=== PATIENT | female | born 1935 | race Caucasian/White ===

== ENCOUNTER 2016-10-02 14:44 | Inpatient (IN) | payer MEDICARE, BC ==
--- NOTE | 2016-10-02 15:22 | XR ---
EXAMINATION TYPE: XR chest 2V DATE OF EXAM: 10/02/2016 3:16 PM COMPARISON: Chest x-ray July 30, 2016. Prior CTA chest July 25, 2016. HISTORY: Altered mental status and weakness TECHNIQUE: Frontal and lateral views of the chest are obtained. FINDINGS: There is chronic parenchymal change without suspicious focal air space opacity, pleural ef fusion, or pneumothorax seen. The cardiac silhouette size remains enlarged with atherosclerotic thor acic aorta. Prominent right heart border suggests right atrial dilatation. This correlates with CTA c hest study. The osseous structures are demineralized. Degenerative change right glenohumeral joint i s redemonstrated. IMPRESSION: Cardiomegaly and chronic parenchymal changes without acute pulmonary process. No signifi cant change from prior.
--- NOTE | 2016-10-02 15:23 | CT ---
EXAMINATION TYPE: CT brain wo con for TPA DATE OF EXAM: 10/02/2016 3:15 PM COMPARISON: NONE HISTORY: weakness CT DLP: 1162.8 mGycm Automated exposure control for dose reduction was used. FINDINGS: There are generalized changes of sulcal prominence and ventriculomegaly, compatible with atrophic jh nge. There is diffuse periventricular white matter lucency, compatible with chronic white matter ischemic change. There is no acute focal lesion, mass effect or midline shift identified. I do not see evidenc e of intracranial blood. Visualized portions of the paranasal sinuses and mastoids are clear. No depressed skull fracture is s een. IMPRESSION: 1. NO ACUTE INTRACRANIAL ABNORMALITY. 2. ATROPHIC CHANGE. 3. CHRONIC WHITE MATTER ISCHEMIC CHANGE.
[2016-10-02 16:12] LABS: Anisocytosis Slight; Basophils # (A) 0.1 k/uL (0-0.2); Basophils % (A) 1 %; CH 29.2; Eosinophils # (A) 0.1 k/uL (0-0.7); Eosinophils % (A) 1 %; HCT 33.9 % (34.0-46.0); HDW 2.85; HGB 11.2 gm/dL (11.4-16.0); Luc # (Auto) 0.09; Luc % (Auto) 1; Lymphocytes # (A) 2.6 k/uL (1.0-4.8); Lymphocytes % (A) 31 %; MCH 29.4 pg (25.0-35.0); MCV 89.1 fL (80.0-100.0); Mean Platelet Volume 7.9; Monocytes # (A) 0.5 k/uL (0-1.0); Monocytes % (A) 6 %; Neutrophils # (A) 5.1 k/uL (1.3-7.7); Neutrophils % (A) 60 %; RBC 3.81 m/uL (3.80-5.40); RDW 16.7 % (11.5-15.5); WBC 8.5 k/uL (3.8-10.6); WBC (Perox) 9.11
[2016-10-02 16:21] LABS: ALT 27 U/L (9-52); AST 30 U/L (14-36); Alkaline Phosphatase 79 U/L (38-126); Anion Gap 11 mmol/L; Blood Urea Nitrogen 20 mg/dL (7-17); Calcium 8.7 mg/dL (8.4-10.2); Carbon Dioxide 22 mmol/L (22-30); Chloride 107 mmol/L (98-107); Glucose 81 mg/dL (74-99); INR 1.2 (<1.1); Non-African American GFR(MDRD) >60 (>60 ml/min/1.73 sqM); Partial Thromboplastin Time 24.2 sec (22.0-30.0); Prothrombin Time 11.7 sec (9.0-12.0); Sodium 140 mmol/L (137-145); Total Bilirubin 0.7 mg/dL (0.2-1.3); Total Protein 6.6 g/dL (6.3-8.2)
[2016-10-02 16:25] LABS: Potassium 4.1 mmol/L (3.5-5.1)
--- NOTE | 2016-10-02 16:32 | ED ---
Neuro HPI - General Chief Complaint: Neuro Symptoms/Deficit Stated Complaint: Neuro Symptoms Time Seen by Provider: 10/02/16 14:44 Source: patient, family, EMS, RN notes reviewed Mode of arrival: EMS Limitations: no limitations - History of Present Illness Is the patient presenting with stroke symptoms?: Yes Last Known Well Date: 10/01/16 Last Known Well Time: 12:30 Initial Comments: This is a 81-year-old female was brought in by EMS for evaluation stroke like symptoms apparently she did contact family members around 10:30 this morning that some right upon contact EMS was called patient was brought here for evaluation she did demonstrate some right facial droop and some aphasia. Per the paramedics she has seemed to perk up however and improve since oxygen and IV fluids were administered. Is unclear exactly when the patient's symptoms started as she was last seen earlier yesterday evening and was normal at that time. Patient denies any headache fevers chills nausea vomiting sweats no trauma. No prior history of stroke she is hard of hearing. - Related Data Home Medications: Home Medications Medication Instructions Recorded Confirmed Budesonide [Pulmicort] 0.5 mg INHALATION RT-BID 07/23/16 10/02/16 Famotidine [Pepcid] 20 mg PO DAILY 07/23/16 10/02/16 Gabapentin [Neurontin] 300 mg PO TID 07/23/16 10/02/16 Levothyroxine Sodium [Synthroid] 112 mcg PO DAILY 07/23/16 10/02/16 Lisinopril [Zestril] 5 mg PO DAILY 07/23/16 10/02/16 Montelukast [Singulair] 10 mg PO HS 07/23/16 10/02/16 Sennosides [Senna] 8.6 mg PO HS 07/23/16 10/02/16 ALPRAZolam [Xanax] 0.25 mg PO BID PRN 10/02/16 10/02/16 Ferrous Sulfate [Feosol] 325 mg PO DAILY 10/02/16 10/02/16 Lutein 10 mg PO DAILY 10/02/16 10/02/16 Metoprolol Tartrate [Lopressor] 50 mg PO BID 10/02/16 10/02/16 Previous Rx's Medication Instructions Recorded Aspirin 81 mg PO DAILY chew 07/28/16 Allergies/Adverse Reactions: Allergies Allergy/AdvReac Type Severity Reaction Status Date / Time No Known Allergies Allergy Verified 10/02/16 16:10 Review of Systems ROS Statement: Those systems with pertinent positive or pertinent negative responses have been documented in the HPI. ROS Other: All systems not noted in ROS Statement are negative. General Exam - General Exam Comments Initial Comments: This is a well-developed well-nourished awake alert oriented history female Limitations: no limitations General appearance: alert Head exam: Present: atraumatic, normocephalic, normal inspection Eye exam: Present: normal appearance, PERRL, EOMI. Absent: scleral icterus, conjunctival injection, periorbital swelling ENT exam: Present: other (He does demonstrate right facial asymmetry) Neck exam: Present: normal inspection, full ROM, other (No stridor JVD or bruits ). Absent: tenderness, meningismus, lymphadenopathy Respiratory exam: Present: normal lung sounds bilaterally. Absent: respiratory distress, wheezes, rales, rhonchi, stridor Cardiovascular Exam: Present: normal rhythm, bradycardia, normal heart sounds. Absent: systolic murmur, diastolic murmur, rubs, gallop, clicks GI/Abdominal exam: Present: soft, normal bowel sounds. Absent: distended, tenderness, guarding, rebound, rigid Rectal exam: Present: deferred Extremities exam: Present: normal inspection, full ROM, normal capillary refill. Absent: tenderness, pedal edema, joint swelling, calf tenderness Back exam: Present: normal inspection Neurological exam: Present: alert, oriented X3, motor sensory deficit. Absent: CN II-XII intact Psychiatric exam: Present: flat affect Skin exam: Present: warm, dry, intact, normal color. Absent: rash Stroke MDM - Lab Data Result diagrams: 10/02/16 15:40 10/02/16 15:40 Lab Results 10/02/16 10/02/16 10/02/16 Range/Units 15:40 15:40 15:40 WBC 8.5 (3.8-10.6) k/uL RBC 3.81 (3.80-5.40) m/uL Hgb 11.2 L (11.4-16.0) gm/dL Hct 33.9 L (34.0-46.0) % MCV 89.1 (80.0-100.0) fL MCH 29.4 (25.0-35.0) pg MCHC 33.0 (31.0-37.0) g/dL RDW 16.7 H (11.5-15.5) % Plt Count 318 (150-450) k/uL Neutrophils % 60 % Lymphocytes % 31 % Monocytes % 6 % Eosinophils % 1 % Basophils % 1 % Neutrophils # 5.1 (1.3-7.7) k/uL Lymphocytes # 2.6 (1.0-4.8) k/uL Monocytes # 0.5 (0-1.0) k/uL Eosinophils # 0.1 (0-0.7) k/uL Basophils # 0.1 (0-0.2) k/uL Anisocytosis Slight PT (9.0-12.0) sec INR (<1.1) APTT (22.0-30.0) sec Sodium 140 (137-145) mmol/L Potassium 4.1 (3.5-5.1) mmol/L Chloride 107 (98-107) mmol/L Carbon Dioxide 22 (22-30) mmol/L Anion Gap 11 mmol/L BUN 20 H (7-17) mg/dL Creatinine 0.82 (0.52-1.04) mg/dL Est GFR (MDRD) Af Amer >60 (>60 ml/min/1.73 sqM) Est GFR (MDRD) Non-Af >60 (>60 ml/min/1.73 sqM) Glucose 81 (74-99) mg/dL Calcium 8.7 (8.4-10.2) mg/dL Total Bilirubin 0.7 (0.2-1.3) mg/dL AST 30 (14-36) U/L ALT 27 (9-52) U/L Alkaline Phosphatase 79 (38-126) U/L Total Creatine Kinase 34 (30-135) U/L CK-MB (CK-2) 0.7 (0.0-2.4) ng/mL CK-MB (CK-2) Rel Index 2.1 Troponin I 0.022 (0.000-0.034) ng/mL Total Protein 6.6 (6.3-8.2) g/dL Albumin 3.6 (3.5-5.0) g/dL 10/02/16 Range/Units 15:40 WBC (3.8-10.6) k/uL RBC (3.80-5.40) m/uL Hgb (11.4-16.0) gm/dL Hct (34.0-46.0) % MCV (80.0-100.0) fL MCH (25.0-35.0) pg MCHC (31.0-37.0) g/dL RDW (11.5-15.5) % Plt Count (150-450) k/uL Neutrophils % % Lymphocytes % % Monocytes % % Eosinophils % % Basophils % % Neutrophils # (1.3-7.7) k/uL Lymphocytes # (1.0-4.8) k/uL Monocytes # (0-1.0) k/uL Eosinophils # (0-0.7) k/uL Basophils # (0-0.2) k/uL Anisocytosis PT 11.7 (9.0-12.0) sec INR 1.2 (<1.1) APTT 24.2 (22.0-30.0) sec Sodium (137-145) mmol/L Potassium (3.5-5.1) mmol/L Chloride (98-107) mmol/L Carbon Dioxide (22-30) mmol/L Anion Gap mmol/L BUN (7-17) mg/dL Creatinine (0.52-1.04) mg/dL Est GFR (MDRD) Af Amer (>60 ml/min/1.73 sqM) Est GFR (MDRD) Non-Af (>60 ml/min/1.73 sqM) Glucose (74-99) mg/dL Calcium (8.4-10.2) mg/dL Total Bilirubin (0.2-1.3) mg/dL AST (14-36) U/L ALT (9-52) U/L Alkaline Phosphatase (38-126) U/L Total Creatine Kinase (30-135) U/L CK-MB (CK-2) (0.0-2.4) ng/mL CK-MB (CK-2) Rel Index Troponin I (0.000-0.034) ng/mL Total Protein (6.3-8.2) g/dL Albumin (3.5-5.0) g/dL - NIH Stroke Scale 1a. Level of Consciousness: (0) alert 1b. LOC Questions: (1) answers 1 question correctly 1c. LOC Commands: (0) performs tasks correctly 2. Best Gaze: (0) normal 3. Visual: (0) no visual loss 4. Facial Palsy: (1) minor paralysis 5a. Motor Arm Left: (0) no drift 5b. Motor Arm Right: (0) no drift 6a. Motor Leg Left: (0) no drift 6b. Motor Leg Right: (0) no drift 7. Limb Ataxia: (0) absent 8. Sensory: (0) normal 9. Best Language: (1) mild/moderate aphasia 10. Dysarthria: (1) mild/moderate dysarthria 11. Extinction/Inattention: (0) no abnormality - Thrombolytic Inclusion/Exclusion Thrombolytic Exclusion Criteria: Onset of Symptoms Unknown Thrombolytic Contraindications: Rapidly Improving s/s - Medical Decision Making I did review the imaging and reports no acute findings. The patient's symptoms are improving and she asked improved at time I initially contacted the patient' s fill her first official NIH score was filled out. She also did improve slightly after return from CAT scan. I did reevaluate her on several occasions I did discuss findings the patient's family. Patient will be admitted with neurological consultation she is not a candidate for intervention at this time due to the unknown timing of the event also she is improving. - EKG Data -: EKG Interpreted by Me EKG shows normal: sinus rhythm (Sinus bradycardia rate of 50. Interval 146 QRS duration 80 QT/QTC of 490/[address]-T wave changes.) Past Medical History Past Medical History: Atrial Fibrillation, COPD, GERD/Reflux, Hyperlipidemia, Hypertension, Thyroid Disorder, Vascular Disorder Additional Past Medical History / Comment(s): 07/23/16 Pt is a transfer from [facility] with NSTEMI. Other HX: chronic AFib, sick sinus syndrome, mitral/aortic regurgitation, bilateral feet burning, PVD, uterine prolapse, iron deficiency anemia, DDD, lumbar compression fracture, osteoporosis, diverticulosis, vertigo , hialtal hernia, past fracture of L arm and R leg and R wrist. History of Any Multi-Drug Resistant Organisms: None Reported Past Surgical History: Cholecystectomy, Joint Replacement Additional Past Surgical History / Comment(s): colonoscopy, bilateral cataract removal then R eyelens did not take hold-(for this reason, R eye looks dilated) , total R hip arthroplasty, tube and ovary removal. Past Anesthesia/Blood Transfusion Reactions: No Reported Reaction Additional Past Anesthesia/Blood Transfusion Reaction / Comment(s): Pt states she believes she received blood in the past without reaction. Past Psychological History: Anxiety Additional Psychological History / Comment(s): Pt resides alone. She has a cane she uses if going outside the home. She no longer drives-quit in 2013. Her family take her to [employer]. She has a guardian alert button. Smoking Status: Former smoker Past Alcohol Use History: None Reported Past Drug Use History: None Reported - Past Family History Father Family Medical History: Cancer Additional Family Medical History / Comment(s): Father had cancer in his shoulder. Mother Family Medical History: CVA/TIA, Diabetes Mellitus Course Vital Signs 10/02/16 15:23 Temperature 97.6 F Pulse Rate 52 L Respiratory 18 Rate Blood Pressure 146/63 O2 Sat by Pulse 99 Oximetry Critical Care Time Critical Care Time: Yes Critical Care Time: 36 minutes of critical care time which includes monitoring the initial EMS run and discussed with paramedics. Evaluation the patient with history physical lab and x-rays and CAT scan orders. Evaluation of the above reevaluation patient several occasions. Discussion with the patient family members regarding the findings discussed with the admitting physician. Admission orders and documentation of the above. Disposition Clinical Impression: Cerebrovascular accident Disposition: ADMITTED IP TO THIS HOSP Condition: Stable
[2016-10-02 16:35] LABS: Creatine Kinase MB 0.7 ng/mL (0.0-2.4); Troponin I 0.022 ng/mL (0.000-0.034)
--- NOTE | 2016-10-02 17:42 | US ---
EXAMINATION TYPE: US carotid duplex BILAT DATE OF EXAM: 10/02/2016 5:27 PM COMPARISON: NONE CLINICAL HISTORY: Stenosis. Confusion EXAM MEASUREMENTS: RIGHT: Peak Systolic Velocity (PSV) cm/sec ----- Right CCA: 70.3 ----- Right ICA: 100.0 ----- Right ECA: 102.1 ICA/CCA ratio: 1.4 RIGHT: End Diastole cm/sec ----- Right CCA: 12.9 ----- Right ICA: 28.9 ----- Right ECA: 7.6 LEFT: Peak Systolic Velocity (PSV) cm/sec ----- Left CCA: 55.9 ----- Left ICA: 73.5 ----- Left ECA: 108.1 ICA/CCA ratio: 1.3 LEFT: End Diastole cm/sec ----- Left CCA: 12.0 ----- Left ICA: 17.5 ----- Left ECA: 9.5 VERTEBRALS (direction of flow): Right Vertebral: Antegrade Left Vertebral: Antegrade TECHNOLOGIST IMPRESSION: Moderate amount of plaque visualized in bilateral bulbs and proximal ICAs. No elevated velocities visualized IMPRESSION: There is antegrade flow in the vertebral arteries. The images and measurements suggest 3 0-40% stenosis in both internal carotid arteries. Criteria for Assigning % of Stenosis / Diameter reduction (Estimation based on the indirect measurements of the internal carotid artery velocities (ICA PSV). 1. Normal (no stenosis)=ICA PSV < 125 cm/s: ratio < 2.0: ICA EDV<40 cm/s. 2. Less than 50% stenosis=ICA PSV < 125 cm/s: ratio < 2.0: ICA EDV<40 cm/s. 3. 50 to 69% stenosis=ICA PSV of 125 to 230 cm/s: ration 2.0 ? 4.0: ICA EDV 40-100 cm/s. 4. Greater than 70% stenosis to near occlusion= ICA PSV > 230 cm/s: ratio > 4.0: ICA EDV > 100 cm/s. 5. Near occlusion= ICA PSV velocities may be low or undetectable: variable ratio and ICA EDV. 6. Total occlusion=unable to detect flow.
[2016-10-02 19:21] VITALS: BMI 23.6
[2016-10-02] MEDS: BUDESONIDE 0.5 MG/2 ML NEBU INHALATION SCH (20:42)
[2016-10-02] MEDS: MONTELUKAST 10 MG TAB PO SCH (22:19)
[2016-10-02] MEDS: GABAPENTIN 300 MG CAP PO SCH (22:19)
[2016-10-02] MEDS: METOPROLOL TARTRATE 50 MG TAB PO SCH (22:19)
[2016-10-03] MEDS: SODIUM CHLORIDE 0.9% 1,000 ML IV SCH ×2 (05:45→06:49)
[2016-10-03] MEDS: LEVOTHYROXINE 112 MCG TAB PO SCH (06:50)
[2016-10-03] MEDS ORDERED: NON-FORMULARY DRUG (Lutein [Lutein] 10 MG) PO SCH (09:00)
[2016-10-03] MEDS: GABAPENTIN 300 MG CAP PO SCH ×3 (09:01→21:54)
[2016-10-03] MEDS: METOPROLOL TARTRATE 50 MG TAB PO SCH ×2 (09:01→21:53)
[2016-10-03] MEDS: FAMOTIDINE 20 MG TAB PO SCH (09:02)
[2016-10-03] MEDS: LISINOPRIL 5 MG TAB PO SCH (09:02)
[2016-10-03] MEDS: FERROUS SULFATE 325 MG TAB PO SCH (09:02)
[2016-10-03] MEDS: BUDESONIDE 0.5 MG/2 ML NEBU INHALATION SCH ×2 (09:22→21:04)
[2016-10-03] MEDS ORDERED: ALPRAZolam 0.25 MG TAB PO PRN (09:44)
[2016-10-03] MEDS ORDERED: NITROGLYCERIN SL TABS 0.4 MG TAB SUBLINGUAL PRN (09:44)
[2016-10-03] MEDS ORDERED: ACETAMINOPHEN TAB 500 MG TAB PO PRN (09:44)
[2016-10-03] MEDS: amLODIPine 2.5 MG TAB PO SCH (11:36)
--- NOTE | 2016-10-03 12:30 | P.HPIM ---
History of Present Illness H&P Date: 10/03/16 Chief Complaint: Right facial droop and aphasia 81-year-old female patient of Dr. Delarosa with past medical history of hypertension, hyperlipidemia, paroxysmal atrial fibrillation is known to have sick sinus syndrome aortic dissection under conservative management, non- ST myocardial infarction in July 2016 status post PCI and stent of RCA, chronic back pain. Patient hasn't drooping of the face and expressive aphasia. Patient came into [facility] emergency center by EMS for evaluation of right facial droop and aphasia. Patient apparently had some improvement with EMS with oxygen and IV fluids. Carotid duplex shows 40% stenosis in both internal carotid arteries. Chest x-ray shows cardio mainly with chronic parenchymal changes without acute pulmonary process. CAT scan of the brain showed no acute intracranial abnormality. Atrophic changes with chronic white matter ischemic change. Troponin was 0.022. Electrolytes, renal and liver function testing all within normal limits. Patient was started on full strength aspirin and admitted to the selective care unit with consult with Dr. Adams from neurology, MRI of the brain has been ordered. PT OT and speech therapy ordered. Review of Systems All systems: negative Constitutional: Denies chills, Denies fever Eyes: denies blurred vision, denies pain Ears, nose, mouth and throat: Denies headache, Denies sore throat Cardiovascular: Denies chest pain, Denies shortness of breath Respiratory: Denies cough Gastrointestinal: Denies abdominal pain, Denies diarrhea, Denies nausea, Denies vomiting Genitourinary: Denies dysuria, Denies hematuria Musculoskeletal: Denies myalgias Integumentary: Denies pruritus, Denies rash Neurological: Reports aphasia, Reports change in speech, Denies balance difficulties, Denies change in mentation, Denies gait dysfunction, Denies head injury, Denies loss of vision, Denies memory loss, Denies numbness, Denies weakness, Denies visual changes Psychiatric: Denies anxiety, Denies depression Endocrine: Denies fatigue, Denies weight change Past Medical History Past Medical History: Atrial Fibrillation, Asthma, COPD, Eye Disorder, GERD/ Reflux, Hyperlipidemia, Hypertension, Osteoarthritis (OA), Pneumonia, Thyroid Disorder, Vascular Disorder Additional Past Medical History / Comment(s): 07/23/16 Pt is a transfer from [facility] with NSTEMI. Other HX: chronic AFib, sick sinus syndrome, mitral/aortic regurgitation, bilateral feet burning, PVD, uterine prolapse, iron deficiency anemia, DDD, lumbar compression fracture, osteoporosis, diverticulosis, vertigo , hialtal hernia, past fracture of L arm and R leg and R wrist. History of Any Multi-Drug Resistant Organisms: None Reported Past Surgical History: Cholecystectomy, Heart Catheterization With Stent, Joint Replacement Additional Past Surgical History / Comment(s): colonoscopy, bilateral cataract removal then R eyelens did not take hold-(for this reason, R eye looks dilated) , total R hip arthroplasty, tube and ovary removal, stent to distal RCA on 07/23. Past Anesthesia/Blood Transfusion Reactions: No Reported Reaction Additional Past Anesthesia/Blood Transfusion Reaction / Comment(s): Pt states she believes she received blood in the past without reaction. Date of Last Stent Placement:: 07/23/16 Past Psychological History: Anxiety Additional Psychological History / Comment(s): Pt resides alone. She has a cane she uses if going outside the home. She no longer drives-quit in 2013. Her family take her to [employer]. She has a guardian alert button. Smoking Status: Former smoker Past Alcohol Use History: None Reported Additional Past Alcohol Use History / Comment(s): Patient quit smoking 1 year ago. Past Drug Use History: None Reported - Past Family History Father Family Medical History: Cancer Additional Family Medical History / Comment(s): Father had cancer in his shoulder. Mother Family Medical History: CVA/TIA, Diabetes Mellitus Medications and Allergies Home Medications Medication Instructions Recorded Confirmed Type Budesonide [Pulmicort] 0.5 mg INHALATION RT-BID 07/23/16 10/02/16 History Famotidine [Pepcid] 20 mg PO DAILY 07/23/16 10/02/16 History Gabapentin [Neurontin] 300 mg PO TID 07/23/16 10/02/16 History Levothyroxine Sodium [Synthroid] 112 mcg PO DAILY 07/23/16 10/02/16 History Lisinopril [Zestril] 5 mg PO DAILY 07/23/16 10/02/16 History Montelukast [Singulair] 10 mg PO HS 07/23/16 10/02/16 History Sennosides [Senna] 8.6 mg PO HS 07/23/16 10/02/16 History ALPRAZolam [Xanax] 0.25 mg PO BID PRN 10/02/16 10/02/16 History Acetaminophen [Tylenol] 500 mg PO Q4-6H PRN 10/02/16 10/02/16 History Atorvastatin [Lipitor] 80 mg PO HS 10/02/16 10/02/16 History Clopidogrel [Plavix] 75 mg PO DAILY 10/02/16 10/02/16 History Ferrous Sulfate [Feosol] 325 mg PO DAILY 10/02/16 10/02/16 History Ipratropium-Albuterol Nebulize 3 ml INHALATION QID PRN 10/02/16 10/02/16 History [Duoneb 0.5 mg-3 mg/3 ml Soln] Lutein 20 mg PO DAILY 10/02/16 10/02/16 History Metoprolol Tartrate [Lopressor] 25 mg PO QAM 10/02/16 10/02/16 History Metoprolol Tartrate [Lopressor] 50 mg PO HS 10/02/16 10/02/16 History Nitroglycerin Sl Tabs [Nitrostat] 0.4 mg PO Q5M PRN 10/02/16 10/02/16 History amLODIPine [Norvasc] 2.5 mg PO DAILY 10/02/16 10/02/16 History Allergies Allergy/AdvReac Type Severity Reaction Status Date / Time No Known Allergies Allergy Verified 10/02/16 16:10 Physical Exam Vitals: Vital Signs Temp Pulse Pulse Resp BP BP Pulse Ox 10/03/16 09:24 54 L 98 10/03/16 04:00 97.3 F L 57 L 18 105/57 97 10/03/16 00:00 97.9 F 54 L 18 110/57 99 10/02/16 20:00 63 18 155/66 99 10/02/16 18:11 97.5 F L 51 L 18 131/63 97 10/02/16 17:15 53 L 18 117/15 97 Intake and Output 10/02/16 10/03/16 10/03/16 22:59 06:59 14:59 Intake Total 100 Balance 100 Intake: IV 100 Sodium Chloride 0.9% 1, 100 000 ml @ 100 mls/hr IV . Q10H MARIO ALBERTO Rx#:[id number] Other: Voiding Method Toilet Toilet # Voids 1 2 Weight 66.454 kg 64.2 kg General appearance: no average body habitus, cooperative, no disheveled, no mild distress, no morbidly obese, no acute distress, no obese, no severe distress, no thin - EENT Eyes: no abnormal pupil, no anicteric sclerae, no disc margins sharp, no edentulous, no EOMI, no PERRLA, no fundus normal, no photophobia, no dentition normal, no poor dentition, no ptosis, no scleral icterus, normal apperance ENT: no hard of hearing, no hearing grossly normal, no NA/AT, normal oropharynx , no other, no pharyngeal erythema, no thrush, no tonsillar exudates, no tonsillar swelling Ears: bilateral: normal - Neck Neck: no lymphadenopathy, normal ROM, no other, no rigidity, no stridor, no thyromegaly Carotids: bilateral: upstroke normal Thyroid: bilateral: normal size - Respiratory Respiratory: bilateral: CTA, diminished - Cardiovascular Rhythm: irregularly irregular Heart sounds: normal: S1, S2 Abnormal Heart Sounds: systolic murmur, S3 Gallop - Gastrointestinal General gastrointestinal: no absent bowel sounds, decreased bowel sounds, no distended, no hepatomegaly, no hyperactive bowel sounds, no normal bowel sounds , no organomegaly, no rigid, no scaphoid, soft, no splenomegaly, no tenderness, no umbilical hernia, no ventral hernia - Integumentary Integumentary: no calor, no cellulitis, no cyanotic, no decreased turgor, no flushed, no jaundiced, normal, no normal turgor, pale, rash, no ulcer - Neurologic Neurologic: CNII-XII intact, possibly slight difficulty with word finding - Musculoskeletal Musculoskeletal: gait normal, generalized weakness, strength equal bilaterally, no right sided weakness, no left sided weakness - Psychiatric Psychiatric: A&O x's 3, appropriate affect, no intact judgment & insight Results CBC & Chem 7: 10/02/16 15:40 10/02/16 15:40 Thrombosis Risk Factor Assmnt - DVT/VTE Prophylaxis DVT/VTE Prophylaxis: Pharmacologic Prophylaxis ordered - Choose All That Apply Each Factor Represents 1 point: Medical pt on bed rest Other Risk Factors: Yes Each Risk Factor Represents 3 Points: Age 75 years or older Thrombosis Risk Factor Assessment Total Risk Factor Score: 4 Thrombosis Risk Factor Assessment Level: Moderate Risk Assessment and Plan Plan: 1. Facial drooping and aphasia rule out CVA or TIA. Consult with neurology. MRI ordered. Continue aspirin 325 mg daily. PT OT and speech therapy in progress. 2. Recent non-ST elevated myocardial infarction July 2016 status post PCI and stent placement of the right coronary artery and dissection of the ascending aorta during angioplasty, stable. Continue aspirin, Lipitor, Plavix, metoprolol 50 mg twice daily. 3. Paroxysmal A. fib: Continue metoprolol. Coumadin was stopped on last hospitalization. 4. hypothyroidism: Continue levothyroxine. 5. COPD: Continue DuoNeb along with Pulmicort continue O2 as needed 7 hyperlipidemia: Continue Lipitor. 8 anemia of chronic disease: Has been on iron supplement. 9 valvular heart disease: Patient still on medical management currently. 10 chronic back pain with compression vertebrae, stable. 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 12 hypertension: Continue Lopressor 50 mg twice daily, amlodipine 2.5 mg daily and lisinopril 5 mg daily. 13 GI prophylaxis: Patient will be on pantoprazole 14 DVT prophylaxis . CODE STATUS: DO NOT RESUSCITATE by patient wishes. Expectation from's admission: Patient in the hospital for more than 2 nights. Discharge plan: To be determined. PT, OT, speech therapy in place. Impression and plan of care have been directed as dictated by the signing physician. Keiko Lazcano nurse practitioner acting as scribe for signing physician. Cc: Dr. Nathaly Mack Time with Patient: Greater than 30
[2016-10-03] MEDS: CLOPIDOGREL 75 MG TAB PO SCH (14:23)
--- NOTE | 2016-10-03 15:07 | MR ---
EXAMINATION TYPE: MR brain wo con DATE OF EXAM: 10/03/2016 2:48 PM COMPARISON: CT brain from yesterday. HISTORY: Weakness and neurodeficits on admission yesterday. Agitation today. TECHNIQUE: Multiplanar, multisequence imaging of the brain and brainstem is performed without IV cont rast. FINDINGS: Diffusion weighted images demonstrate cortical and subcortical areas of increased signal on diffusion weighted images with diminished signal on ADC mapping involving the left superior temporal lobe late ral and posterior aspect with increased T2 signal consistent with evolving acute/subacute infarct. So me inferior parietal lobe extension is felt present. There is no worrisome extra-axial fluid collection. There is ventricular and sulcal prominence consis tent with diffuse cerebral atrophy. There are focal and confluent areas of T2 hyperintensity seen thr oughout the deep and periventricular white matter presumed to reflect product of chronic small vessel ischemic change. Midline structures demonstrate normal morphology. The craniocervical junction appears within normal limits. Normal vascular flow voids are present. Dominant left vertebral artery is present. The visual ized sinuses are clear and the globes are intact. IMPRESSION: 1. Areas of evolving acute infarct involving predominantly posterior superior lateral aspect of left temporal lobe with some parietal lobe extension. 2. Background of mild to moderate diffuse cerebral atrophy and moderate to severe chronic small vesse l ischemic change is felt present.
[2016-10-03] MEDS: ASPIRIN 325 MG TAB PO SCH (16:36)
--- NOTE | 2016-10-03 17:28 | P.CNNES ---
History of Present Illness Consult date: 10/03/16 Requesting physician: Vivien Duckworth Reason for Consult: CVA History of Present Illness: Patient is a pleasant 81-year-old female who is being evaluated by the neurology service on 10/03/2016 per the request of Dr. Duckworth for right facial droop and aphasia. Patient has known history of hypertension, hyperlipidemia, paroxysmal atrial fib on Plavix and aspirin, myocardial infarction in July 2016, and chronic back pain. Patient was seen day before yesterday by daughter and she states patient was her normal self. Yesterday patient called her daughter and was having word finding difficulties. Daughter went to the house and thought she saw a right facial droop. Patient was brought to the primary care office and was advised to go to the ER. Patient presented to [facility] for further evaluation. Patient had CT of the brain on admission which showed no acute intracranial abnormality. It did show atrophic changes with chronic white matter ischemic change. Patient had carotid Dopplers done which showed both internal carotid arteries showing approximately 40% stenosis. Hemoglobin was 11.2, hematocrit 33.9. BUN was 20 with creatinine of 0.82. Cardiac enzymes were negative. Electrolytes, renal and liver function testing all within normal limits. Patient underwent MRI of the brain which revealed an evolving acute infarct involving predominantly posterior superior lateral aspect of left temporal lobe with some parietal lobe extension. MRI also confirms cerebral atrophy and moderate to severe chronic small vessel ischemic changes. At the time of my evaluation, patient is resting comfortably in bed and appears to be in no acute distress. Family is at the bedside. Review of Systems REVIEW OF SYSTEMS: Otherwise unremarkable and noncontributory. Past Medical History Past Medical History: Atrial Fibrillation, Asthma, COPD, Eye Disorder, GERD/ Reflux, Hyperlipidemia, Hypertension, Osteoarthritis (OA), Pneumonia, Thyroid Disorder, Vascular Disorder Additional Past Medical History / Comment(s): 07/23/16 Pt is a transfer from [facility] with NSTEMI. Other HX: chronic AFib, sick sinus syndrome, mitral/aortic regurgitation, bilateral feet burning, PVD, uterine prolapse, iron deficiency anemia, DDD, lumbar compression fracture, osteoporosis, diverticulosis, vertigo , hialtal hernia, past fracture of L arm and R leg and R wrist. History of Any Multi-Drug Resistant Organisms: None Reported Past Surgical History: Cholecystectomy, Heart Catheterization With Stent, Joint Replacement Additional Past Surgical History / Comment(s): colonoscopy, bilateral cataract removal then R eyelens did not take hold-(for this reason, R eye looks dilated) , total R hip arthroplasty, tube and ovary removal, stent to distal RCA on 07/23. Past Anesthesia/Blood Transfusion Reactions: No Reported Reaction Additional Past Anesthesia/Blood Transfusion Reaction / Comment(s): Pt states she believes she received blood in the past without reaction. Date of Last Stent Placement:: 07/23/16 Past Psychological History: Anxiety Additional Psychological History / Comment(s): Pt resides alone. She has a cane she uses if going outside the home. She no longer drives-quit in 2013. Her family take her to [facility]. She has a guardian alert button. Smoking Status: Former smoker Past Alcohol Use History: None Reported Additional Past Alcohol Use History / Comment(s): Patient quit smoking 1 year ago. Past Drug Use History: None Reported - Past Family History Father Family Medical History: Cancer Additional Family Medical History / Comment(s): Father had cancer in his shoulder. Mother Family Medical History: CVA/TIA, Diabetes Mellitus Medications and Allergies Home Medications Medication Instructions Recorded Confirmed Type Budesonide [Pulmicort] 0.5 mg INHALATION RT-BID 07/23/16 10/02/16 History Famotidine [Pepcid] 20 mg PO DAILY 07/23/16 10/02/16 History Gabapentin [Neurontin] 300 mg PO TID 07/23/16 10/02/16 History Levothyroxine Sodium [Synthroid] 112 mcg PO DAILY 07/23/16 10/02/16 History Lisinopril [Zestril] 5 mg PO DAILY 07/23/16 10/02/16 History Montelukast [Singulair] 10 mg PO HS 07/23/16 10/02/16 History Sennosides [Senna] 8.6 mg PO HS 07/23/16 10/02/16 History ALPRAZolam [Xanax] 0.25 mg PO BID PRN 10/02/16 10/02/16 History Acetaminophen [Tylenol] 500 mg PO Q4-6H PRN 10/02/16 10/02/16 History Atorvastatin [Lipitor] 80 mg PO HS 10/02/16 10/02/16 History Clopidogrel [Plavix] 75 mg PO DAILY 10/02/16 10/02/16 History Ferrous Sulfate [Feosol] 325 mg PO DAILY 10/02/16 10/02/16 History Ipratropium-Albuterol Nebulize 3 ml INHALATION QID PRN 10/02/16 10/02/16 History [Duoneb 0.5 mg-3 mg/3 ml Soln] Lutein 20 mg PO DAILY 10/02/16 10/02/16 History Metoprolol Tartrate [Lopressor] 25 mg PO QAM 10/02/16 10/02/16 History Metoprolol Tartrate [Lopressor] 50 mg PO HS 10/02/16 10/02/16 History Nitroglycerin Sl Tabs [Nitrostat] 0.4 mg PO Q5M PRN 10/02/16 10/02/16 History amLODIPine [Norvasc] 2.5 mg PO DAILY 10/02/16 10/02/16 History Allergies Allergy/AdvReac Type Severity Reaction Status Date / Time No Known Allergies Allergy Verified 10/02/16 16:10 Physical Examination - Vital Signs Vital Signs: Vital Signs Temp Pulse Pulse Resp BP BP Pulse Ox 10/03/16 11:20 97.4 F L 56 L 18 111/57 95 10/03/16 09:38 56 L 10/03/16 09:24 54 L 98 10/03/16 08:50 98.2 F 63 18 129/60 93 L 10/03/16 04:00 97.3 F L 57 L 18 105/57 97 10/03/16 00:00 97.9 F 54 L 18 110/57 99 10/02/16 20:00 63 18 155/66 99 10/02/16 18:11 97.5 F L 51 L 18 131/63 97 10/02/16 17:15 53 L 18 117/15 97 Intake and Output 10/03/16 10/03/16 10/03/16 06:59 14:59 22:59 Intake Total 100 1020 Balance 100 1020 Intake: IV 100 800 Sodium Chloride 0.9% 1, 100 800 000 ml @ 100 mls/hr IV . Q10H [facility] Rx#:[id number] Oral 220 Other: Voiding Method Toilet # Voids 2 Weight 64.2 kg PHYSICAL EXAM: GENERAL APPEARANCE: Patient is a well-developed, female who appears to be in no acute distress. HEENT: Normocephalic, atraumatic, no facial asymmetry is seen. Neck is supple with no masses felt. CARDIOVASCULAR: Regular rate and rhythm. ABDOMEN: Nontender, nondistended. EXTREMITIES: Show no edema or clubbing. NEUROLOGICAL EXAM: Patient is awake, alert, and oriented 3. Speech is mildly dysarthric. Language is normal. Patient is hard of hearing. Strength is full in all 4 extremities. Sensory exam is normal to light touch in all 4 extremities. No facial asymmetry is seen on cranial nerve testing. No tremors or seizure-like activity is noted. Results - Laboratory Findings CBC and BMP: 10/02/16 15:40 10/02/16 15:40 Assessment and Plan (1) Cerebrovascular accident Status: Acute (2) Anemia Status: Acute (3) Atrial fibrillation Status: Acute (4) Coronary artery disease Status: Acute Plan: Recommendations: It does appear patient has an evolving acute infarct involving left temporal lobe. Patient still has some ongoing word finding and speech difficulties. I recommend speech therapy. No lateralizing weakness noted. As previously mentioned, patient CT of the brain showed no acute changes. MRI of brain show evolving temporal lobe infarct. Carotid Doppler showed 40% stenosis in both internal carotid arteries. I recommend continuing antiplatelet therapy. I will order an EEG. I will order fasting lipid panel and a serum homocysteine level. I recommend a PT/ OT evaluation. Continue neurological checks. I will continue to follow with you. Further recommendations to follow. Thank you for allowing me to participate in the care of your patient. Feel free to call me with any questions or concerns. I performed an examination of the patient and discussed the management with the GENERAL ACCOUNTING CLERK. I have reviewed the GENERAL ACCOUNTING CLERK notes and agree with the findings and plan of care.
[2016-10-03] MEDS ORDERED: METOPROLOL TARTRATE 50 MG TAB PO SCH (21:00)
[2016-10-03] MEDS: ATORVASTATIN 80 MG TAB PO SCH (21:53)
[2016-10-03] MEDS: MONTELUKAST 10 MG TAB PO SCH (21:53)
[2016-10-03] MEDS: SENNOSIDES 8.6 MG TAB PO SCH (21:54)
[2016-10-04] MEDS: LEVOTHYROXINE 112 MCG TAB PO SCH (06:36)
[2016-10-04 06:44] LABS: Anisocytosis Slight; CH 28.8; CHCM 32.9; HCT 31.5 % (34.0-46.0); HDW 2.66; HGB 10.8 gm/dL (11.4-16.0); MCH 30.1 pg (25.0-35.0); MCHC 34.2 g/dL (31.0-37.0); MCV 88.1 fL (80.0-100.0); Mean Platelet Volume 7.6; RBC 3.58 m/uL (3.80-5.40); RDW 16.5 % (11.5-15.5); WBC 7.4 k/uL (3.8-10.6)
[2016-10-04 07:01] LABS: Anion Gap 10 mmol/L; Blood Urea Nitrogen 11 mg/dL (7-17); Calcium 8.7 mg/dL (8.4-10.2); Carbon Dioxide 25 mmol/L (22-30); Chloride 108 mmol/L (98-107); Cholesterol 92 mg/dL (<200); Glucose 84 mg/dL (74-99); HDL Cholesterol 27 mg/dL (40-60); Non-African American GFR(MDRD) >60 (>60 ml/min/1.73 sqM); Potassium 3.7 mmol/L (3.5-5.1); Sodium 143 mmol/L (137-145); Triglycerides 138 mg/dL (<150)
[2016-10-04] MEDS ORDERED: PANTOPRAZOLE 40 MG TABLET PO SCH (07:30)
[2016-10-04] MEDS: BUDESONIDE 0.5 MG/2 ML NEBU INHALATION SCH ×2 (08:36→20:52)
[2016-10-04] MEDS: FAMOTIDINE 20 MG TAB PO SCH (09:11)
[2016-10-04] MEDS: METOPROLOL TARTRATE 50 MG TAB PO SCH ×2 (09:11→20:56)
[2016-10-04] MEDS: ASPIRIN 325 MG TAB PO SCH (09:12)
[2016-10-04] MEDS: GABAPENTIN 300 MG CAP PO SCH ×3 (09:12→21:00)
[2016-10-04] MEDS: CLOPIDOGREL 75 MG TAB PO SCH (09:12)
[2016-10-04] MEDS: amLODIPine 2.5 MG TAB PO SCH (09:12)
[2016-10-04] MEDS: LISINOPRIL 5 MG TAB PO SCH (09:13)
[2016-10-04] MEDS: FERROUS SULFATE 325 MG TAB PO SCH (09:13)
--- NOTE | 2016-10-04 12:32 | P.PN ---
Subjective 81-year-old female patient of Dr. Delarosa with past medical history of hypertension, hyperlipidemia, paroxysmal atrial fibrillation is known to have sick sinus syndrome aortic dissection under conservative management, non- ST myocardial infarction in July 2016 status post PCI and stent of RCA, chronic back pain. Patient hasn't drooping of the face and expressive aphasia. Patient came into [facility] emergency center by EMS for evaluation of right facial droop and aphasia. Patient apparently had some improvement with EMS with oxygen and IV fluids. Carotid duplex shows 40% stenosis in both internal carotid arteries. Chest x-ray shows cardio mainly with chronic parenchymal changes without acute pulmonary process. CAT scan of the brain showed no acute intracranial abnormality. Atrophic changes with chronic white matter ischemic change. Troponin was 0.022. Electrolytes, renal and liver function testing all within normal limits. Patient was started on full strength aspirin and admitted to the selective care unit with consult with Dr. Adams from neurology, MRI of the brain has been ordered. PT OT and speech therapy ordered. 10/04:MRI of the brain shows areas of evolving acute infarct involving posterior superior lateral aspect of the left temporal lobe with some parietal lobe extension. Background of [id number] diffuse cerebral atrophy and moderate to severe chronic small vessel ischemic change. Patient has been seen by neurology. EEG is scheduled for today. Case management has set the patient up for discharge home with VNA. Anticipate possible discharge by tomorrow. Patient did well with physical therapy and does not have any deficits in that way but continues to have word finding difficulties. OT and speech therapy are on.triglycerides 138, cholesterol 92, LDL 37, HDL 27. Objective - Vital Signs Vital signs: Vital Signs Temp 97.7 F 10/04/16 04:00 Pulse 53 L 10/04/16 04:00 Resp 18 10/04/16 04:00 BP 104/53 10/04/16 04:00 Pulse Ox 95 10/04/16 04:00 Intake & Output 10/03/16 10/04/16 10/04/16 18:59 06:59 18:59 Intake Total 1140 240 Balance 1140 240 Weight 64.2 kg Intake: IV 800 Sodium Chloride 0.9% 1, 800 000 ml @ 100 mls/hr IV . Q10H [facility] Rx#:[id number] Oral 340 240 Other: Voiding Method Toilet # Voids 1 - Exam General appearance: no average body habitus, cooperative, no disheveled, no mild distress, no morbidly obese, no acute distress, no obese, no severe distress, no thin - EENT Eyes: no abnormal pupil, no anicteric sclerae, no disc margins sharp, no edentulous, no EOMI, no PERRLA, no fundus normal, no photophobia, no dentition normal, no poor dentition, no ptosis, no scleral icterus, normal apperance ENT: no hard of hearing, no hearing grossly normal, no NA/AT, normal oropharynx , no other, no pharyngeal erythema, no thrush, no tonsillar exudates, no tonsillar swelling Ears: bilateral: normal - Neck Neck: no lymphadenopathy, normal ROM, no other, no rigidity, no stridor, no thyromegaly Carotids: bilateral: upstroke normal Thyroid: bilateral: normal size - Respiratory Respiratory: bilateral: CTA, diminished - Cardiovascular Rhythm: irregularly irregular Heart sounds: normal: S1, S2 Abnormal Heart Sounds: systolic murmur, S3 Gallop - Gastrointestinal General gastrointestinal: no absent bowel sounds, decreased bowel sounds, no distended, no hepatomegaly, no hyperactive bowel sounds, no normal bowel sounds , no organomegaly, no rigid, no scaphoid, soft, no splenomegaly, no tenderness, no umbilical hernia, no ventral hernia - Integumentary Integumentary: no calor, no cellulitis, no cyanotic, no decreased turgor, no flushed, no jaundiced, normal, no normal turgor, pale, rash, no ulcer - Neurologic Neurologic: CNII-XII intact, slight difficulty with word finding - Musculoskeletal Musculoskeletal: gait normal, generalized weakness, strength equal bilaterally, no right sided weakness, no left sided weakness - Psychiatric Psychiatric: A&O x's 3, appropriate affect, no intact judgment & insight - Labs CBC & Chem 7: 10/04/16 06:02 10/04/16 06:02 Labs: Abnormal Lab Results - Last 24 Hours (Table) 10/04/16 10/04/16 Range/Units 06:02 06:02 RBC 3.58 L (3.80-5.40) m/uL Hgb 10.8 L (11.4-16.0) gm/dL Hct 31.5 L (34.0-46.0) % RDW 16.5 H (11.5-15.5) % Chloride 108 H (98-107) mmol/L HDL Cholesterol 27 L (40-60) mg/dL Assessment and Plan Plan: 1. 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 Consult with neurologyappreciated. MRI as above. Continue aspirin 325 mg daily, Lipitor. PT OT and speech therapy in progress. 2. Recent non-ST elevated myocardial infarction July 2016 status post PCI and stent placement of the right coronary artery and dissection of the ascending aorta during angioplasty, stable. Continue aspirin, Lipitor, Plavix, metoprolol 50 mg twice daily. 3. Paroxysmal A. fib: Continue metoprolol. Coumadin was stopped on last hospitalization. 4. hypothyroidism: Continue levothyroxine. 5. COPD: Continue DuoNeb along with Pulmicort continue O2 as needed 7 hyperlipidemia: Continue Lipitor. 8 anemia of chronic disease: Has been on iron supplement. 9 valvular heart disease: Patient still on medical management currently. 10 chronic back pain with compression vertebrae, stable. 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 12 hypertension: Continue Lopressor 50 mg twice daily, amlodipine 2.5 mg daily and lisinopril 5 mg daily. 13 GI prophylaxis: Patient will be on pantoprazole 14 DVT prophylaxis . CODE STATUS: DO NOT RESUSCITATE by patient wishes. Discharge plan: Home with A[facility] Friday. PT, OT, speech therapy in place. Impression and plan of care have been directed as dictated by the signing physician. Keiko Lazcano nurse practitioner acting as scribe for signing physician. Time with Patient: Greater than 30
--- NOTE | 2016-10-04 15:34 | P.PN ---
Subjective Principal diagnosis: Patient is a pleasant 81-year-old female who is being followed by the neurology service for CVA. She does have known history of hypertension, hyperlipidemia, paroxysmal atrial fib on Plavix and aspirin, myocardial infarction in July 2016, and chronic back pain. Patient began having word finding difficulties, dysarthria, and confusion and family brought patient to [facility] emergency room for further evaluation. Patient had CT of the brain on admission which showed no acute process. CT the brain did show atrophic changes with chronic white matter ischemic change. Patient did have MRI of the brain which revealed an evolving acute infarct predominately posterior superior lateral aspect the left temporal lobe with some parietal lobe extension. At the time of my evaluation, patient is resting comfortably in bed and appears to be in no acute distress. Objective - Vital Signs Vital signs: Vital Signs Temp 97.5 F L 10/04/16 08:00 Pulse 51 L 10/04/16 12:00 Resp 18 10/04/16 12:00 BP 124/58 10/04/16 12:00 Pulse Ox 95 10/04/16 08:00 Intake & Output 10/03/16 10/04/16 10/04/16 18:59 06:59 18:59 Intake Total 1140 480 Output Total 300 Balance 1140 180 Weight 64.2 kg Intake: IV 800 Sodium Chloride 0.9% 1, 800 000 ml @ 100 mls/hr IV . Q10H [facility] Rx#:[id number] Oral 340 480 Output: Urine 300 Other: Voiding Method Toilet # Voids 1 1 # Bowel Movements 1 - Exam PHYSICAL EXAM: GENERAL APPEARANCE: Patient is a well-developed, female who appears to be in no acute distress. HEENT: Normocephalic, atraumatic, no facial asymmetry is seen. Neck is supple with no masses felt. CARDIOVASCULAR: Regular rate and rhythm. ABDOMEN: Nontender, nondistended. EXTREMITIES: Show no edema or clubbing. NEUROLOGICAL EXAM: Patient is awake, alert, and oriented 2. Patient is not clear what year this is. Speech is mildly dysarthric. Language is normal. Strength is full in all 4 extremities. Sensory exam to light touch is normal in all 4 extremities. No facial asymmetry is seen on cranial nerve testing. No tremors or seizure-like activity is seen. - Labs CBC & Chem 7: 10/04/16 06:02 10/04/16 06:02 Labs: Abnormal Lab Results - Last 24 Hours (Table) 10/04/16 10/04/16 Range/Units 06:02 06:02 RBC 3.58 L (3.80-5.40) m/uL Hgb 10.8 L (11.4-16.0) gm/dL Hct 31.5 L (34.0-46.0) % RDW 16.5 H (11.5-15.5) % Chloride 108 H (98-107) mmol/L HDL Cholesterol 27 L (40-60) mg/dL Assessment and Plan (1) Cerebrovascular accident Status: Acute (2) Anemia Status: Acute (3) Atrial fibrillation Status: Acute (4) Coronary artery disease Status: Acute Plan: Recommendations: MRI of the brain shows an evolving acute infarct involving left temporal lobe. Patient still has some ongoing word finding and speech difficulties. I recommend speech therapy. No lateralizing weakness noted. As previously mentioned, patient CT of the brain showed no acute changes. MRI of brain show evolving temporal lobe infarct. Carotid Doppler showed 40% stenosis in both internal carotid arteries. I recommend continuing antiplatelet therapy. I will order an EEG. Her fasting lipid panel was within normal limits except for low HDL 27. Serum homocysteine level is pending. Continue neurological checks. Barring any abnormality on the EEG, patient is stable for discharge from neurological standpoint. I will continue to follow with you. Further recommendations to follow. I performed an examination of the patient and discussed the management with the [employer]. I have reviewed the [employer] notes and agree with the findings and plan of care.
[2016-10-04] MEDS: SENNOSIDES 8.6 MG TAB PO SCH (20:55)
[2016-10-04] MEDS: ATORVASTATIN 80 MG TAB PO SCH (20:55)
[2016-10-04] MEDS: MONTELUKAST 10 MG TAB PO SCH (20:56)
[2016-10-05] MEDS: LEVOTHYROXINE 112 MCG TAB PO SCH (05:59)
[2016-10-05] MEDS: FERROUS SULFATE 325 MG TAB PO SCH (08:51)
[2016-10-05] MEDS: amLODIPine 2.5 MG TAB PO SCH (08:51)
[2016-10-05] MEDS: ASPIRIN 325 MG TAB PO SCH (08:51)
[2016-10-05] MEDS: CLOPIDOGREL 75 MG TAB PO SCH (08:51)
[2016-10-05] MEDS: FAMOTIDINE 20 MG TAB PO SCH (08:51)
[2016-10-05] MEDS: LISINOPRIL 5 MG TAB PO SCH (08:51)
[2016-10-05] MEDS: GABAPENTIN 300 MG CAP PO SCH ×3 (08:51→21:28)
[2016-10-05] MEDS: METOPROLOL TARTRATE 50 MG TAB PO SCH ×2 (08:51→21:28)
[2016-10-05] MEDS: BUDESONIDE 0.5 MG/2 ML NEBU INHALATION SCH ×2 (11:02→20:59)
--- NOTE | 2016-10-05 16:11 | P.PN ---
Subjective Principal diagnosis: Patient is a pleasant 81-year-old female who is being followed by the neurology service for CVA. She does have known history of hypertension, hyperlipidemia, paroxysmal atrial fib on Plavix and aspirin, myocardial infarction in July 2016, and chronic back pain. Patient began having word finding difficulties, dysarthria, and confusion and family brought patient to [facility] emergency room for further evaluation. Patient had CT of the brain on admission which showed no acute process. CT the brain did show atrophic changes with chronic white matter ischemic change. Patient did have MRI of the brain which revealed an evolving acute infarct predominately posterior superior lateral aspect the left temporal lobe with some parietal lobe extension. At the time of my evaluation, patient is resting comfortably in bed and appears to be in no acute distress. Objective - Vital Signs Vital signs: Vital Signs Temp 98.4 F 10/04/16 20:00 Pulse 63 10/05/16 12:00 Resp 18 10/05/16 12:00 BP 112/53 10/05/16 12:00 Pulse Ox 95 10/05/16 12:00 Intake & Output 10/04/16 10/05/16 10/05/16 18:59 06:59 18:59 Intake Total 720 100 Output Total 600 Balance 120 100 Weight 64.2 kg Intake: Oral 720 100 Output: Urine 600 Other: # Voids 1 1 # Bowel Movements 1 - Exam PHYSICAL EXAM: GENERAL APPEARANCE: Patient is a well-developed, female who appears to be in no acute distress. HEENT: Normocephalic, atraumatic, no facial asymmetry is seen. Neck is supple with no masses felt. CARDIOVASCULAR: Regular rate and rhythm. ABDOMEN: Nontender, nondistended. EXTREMITIES: Show no edema or clubbing. NEUROLOGICAL EXAM: Patient is awake, alert, and oriented 3. Speech is mildly dysarthric. Language is normal. Patient still has mild word finding difficulty. Strength is full in all 4 extremities. Sensory exam to light touch is normal in all 4 extremities. No facial asymmetry is seen on cranial nerve testing. No tremors or seizure-like activity is seen. - Labs CBC & Chem 7: 10/04/16 06:02 10/04/16 06:02 Labs: Abnormal Lab Results - Last 24 Hours (Table) 10/04/16 Range/Units 06:02 Homocysteine 20.72 H (4.00-14.00) umol/L Assessment and Plan (1) Cerebrovascular accident Status: Acute (2) Anemia Status: Acute (3) Atrial fibrillation Status: Acute (4) Coronary artery disease Status: Acute Plan: Recommendations: MRI of the brain shows an evolving acute infarct involving left temporal lobe. Patient still has some ongoing word finding and speech difficulties. I recommend speech therapy. No lateralizing weakness noted. As previously mentioned, patient CT of the brain showed no acute changes. MRI of brain show evolving temporal lobe infarct. Carotid Doppler showed 40% stenosis in both internal carotid arteries. I recommend continuing antiplatelet therapy. EEG was done and results are pending. Her fasting lipid panel was within normal limits except for low HDL 27. Her serum homocystine level was elevated and I will start her on Foltx daily. Continue neurological checks. Barring any abnormality on the EEG, patient is stable for discharge from neurological standpoint. I will continue to follow with you on an as-needed basis. Feel free to call with any questions or concerns. I performed an examination of the patient and discussed the management with the [employer]. I have reviewed the [employer] notes and agree with the findings and plan of care.
--- NOTE | 2016-10-05 18:37 | P.PN ---
Subjective 81-year-old female patient of Dr. Delarosa with past medical history of hypertension, hyperlipidemia, paroxysmal atrial fibrillation is known to have sick sinus syndrome aortic dissection under conservative management, non- ST myocardial infarction in July 2016 status post PCI and stent of RCA, chronic back pain. Patient hasn't drooping of the face and expressive aphasia. Patient came into [facility] emergency center by EMS for evaluation of right facial droop and aphasia. Patient apparently had some improvement with EMS with oxygen and IV fluids. Carotid duplex shows 40% stenosis in both internal carotid arteries. Chest x-ray shows cardio mainly with chronic parenchymal changes without acute pulmonary process. CAT scan of the brain showed no acute intracranial abnormality. Atrophic changes with chronic white matter ischemic change. Troponin was 0.022. Electrolytes, renal and liver function testing all within normal limits. Patient was started on full strength aspirin and admitted to the selective care unit with consult with Dr. Adams from neurology, MRI of the brain has been ordered. PT OT and speech therapy ordered. 10/04:MRI of the brain shows areas of evolving acute infarct involving posterior superior lateral aspect of the left temporal lobe with some parietal lobe extension. Background of [id number] diffuse cerebral atrophy and moderate to severe chronic small vessel ischemic change. Patient has been seen by neurology. EEG is scheduled for today. Case management has set the patient up for discharge home with VNA. Anticipate possible discharge by tomorrow. Patient did well with physical therapy and does not have any deficits in that way but continues to have word finding difficulties. OT and speech therapy are on.triglycerides 138, cholesterol 92, LDL 37, HDL 27. 10/05: Patient was seen today she has improving speech, no significant motor deficits. She has difficulty in word finding otherwise. Patient has been seen by speech and occupational therapy with recommendations for home rehabilitation. Patient did not qualify for inpatient rehabilitation. Family is at bedside and is contemplating on the plans. AFC against home with family. Anticipate discharge on Friday pending disposition for family members Objective - Vital Signs Vital signs: Vital Signs Temp 98.4 F 10/04/16 20:00 Pulse 55 L 10/05/16 16:00 Resp 18 10/05/16 16:00 BP 109/59 10/05/16 16:00 Pulse Ox 95 10/05/16 16:00 Intake & Output 10/04/16 10/05/1610/05/17 18:59 06:59 18:59 Intake Total 720 100 Output Total 600 Balance 120 100 Weight 64.2 kg Intake: Oral 720 100 Output: Urine 600 Other: # Voids 1 1 # Bowel Movements 1 - Constitutional General appearance: Present: average body habitus, cooperative, no acute distress - EENT Eyes: Present: anicteric sclerae, EOMI, PERRLA, dentition normal, normal appearance ENT: Present: hearing grossly normal, NA/AT, normal oropharynx - Neck Neck: Present: normal ROM. Absent: lymphadenopathy, other, rigidity, stridor, thyromegaly - Respiratory Respiratory: bilateral: CTA, negative: diminished, dullness, rales - Cardiovascular Rhythm: regular Heart sounds: normal: S1, S2 Abnormal Heart Sounds: Absent: systolic murmur, diastolic murmur, rub, S3 Gallop , S4 Gallop, click, other - Gastrointestinal General gastrointestinal: Present: normal bowel sounds, soft. Absent: absent bowel sounds, decreased bowel sounds, distended, hepatomegaly, hyperactive bowel sounds, organomegaly, rigid, scaphoid, splenomegaly, tenderness, umbilical hernia, ventral hernia - Integumentary Integumentary: Present: normal, normal turgor - Neurologic Neurologic: Present: CNII-XII intact - Musculoskeletal Musculoskeletal: Present: gait normal, strength equal bilaterally - Psychiatric Psychiatric: Present: A&O x's 3, appropriate affect, intact judgment & insight - Labs CBC & Chem 7: 10/04/16 06:02 10/04/16 06:02 Labs: Laboratory Results WBC 7.4 k/uL (3.8-10.6) 10/04/16 06:02 RBC 3.58 m/uL (3.80-5.40) L 10/04/16 06:02 Hgb 10.8 gm/dL (11.4-16.0) L 10/04/16 06:02 Hct 31.5 % (34.0-46.0) L 10/04/16 06:02 MCV 88.1 fL (80.0-100.0) 10/04/16 06:02 MCH 30.1 pg (25.0-35.0) 10/04/16 06:02 MCHC 34.2 g/dL (31.0-37.0) 10/04/16 06:02 RDW 16.5 % (11.5-15.5) H 10/04/16 06:02 Plt Count 299 k/uL (150-450) 10/04/16 06:02 Neutrophils % 60 % 10/02/16 15:40 Lymphocytes % 31 % 10/02/16 15:40 Monocytes % 6 % 10/02/16 15:40 Eosinophils % 1 % 10/02/16 15:40 Basophils % 1 % 10/02/16 15:40 Neutrophils # 5.1 k/uL (1.3-7.7) 10/02/16 15:40 Lymphocytes # 2.6 k/uL (1.0-4.8) 10/02/16 15:40 Monocytes # 0.5 k/uL (0-1.0) 10/02/16 15:40 Eosinophils # 0.1 k/uL (0-0.7) 10/02/16 15:40 Basophils # 0.1 k/uL (0-0.2) 10/02/16 15:40 Anisocytosis Slight 10/04/16 06:02 PT 11.7 sec (9.0-12.0) 10/02/16 15:40 INR 1.2 (<1.1) 10/02/16 15:40 APTT 24.2 sec (22.0-30.0) 10/02/16 15:40 Sodium 143 mmol/L (137-145) 10/04/16 06:02 Potassium 3.7 mmol/L (3.5-5.1) 10/04/16 06:02 Chloride 108 mmol/L (98-107) H 10/04/16 06:02 Carbon Dioxide 25 mmol/L (22-30) 10/04/16 06:02 Anion Gap 10 mmol/L 10/04/16 06:02 BUN 11 mg/dL (7-17) 10/04/16 06:02 Creatinine 0.80 mg/dL (0.52-1.04) 10/04/16 06:02 Est GFR (MDRD) Af Amer >60 (>60 ml/min/1.73 sqM) 10/04/16 06:02 Est GFR (MDRD) Non-Af >60 (>60 ml/min/1.73 sqM) 10/04/16 06:02 Glucose 84 mg/dL (74-99) 10/04/16 06:02 Calcium 8.7 mg/dL (8.4-10.2) 10/04/16 06:02 Total Bilirubin 0.7 mg/dL (0.2-1.3) 10/02/16 15:40 AST 30 U/L (14-36) 10/02/16 15:40 ALT 27 U/L (9-52) 10/02/16 15:40 Alkaline Phosphatase 79 U/L (38-126) 10/02/16 15:40 Total Creatine Kinase 34 U/L (30-135) 10/02/16 15:40 CK-MB (CK-2) 0.7 ng/mL (0.0-2.4) 10/02/16 15:40 CK-MB (CK-2) Rel Index 2.1 10/02/16 15:40 Troponin I 0.022 ng/mL (0.000-0.034) 10/02/16 15:40 Total Protein 6.6 g/dL (6.3-8.2) 10/02/16 15:40 Albumin 3.6 g/dL (3.5-5.0) 10/02/16 15:40 Triglycerides 138 mg/dL (<150) 10/04/16 06:02 Cholesterol 92 mg/dL (<200) 10/04/16 06:02 LDL Cholesterol, Calc 37 mg/dL (0-99) 10/04/16 06:02 HDL Cholesterol 27 mg/dL (40-60) L 10/04/16 06:02 Homocysteine 20.72 umol/L (4.00-14.00) H 10/04/16 06:02 Assessment and Plan Plan: 1. 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 Consult with neurologyappreciated. MRI as above. Continue aspirin 325 mg daily, Lipitor. PT OT and speech therapy in progress. Plan for home speech therapy and occupational therapy for expressive aphasia 2. Recent non-ST elevated myocardial infarction July 2016 status post PCI and stent placement of the right coronary artery and dissection of the ascending aorta during angioplasty, stable. Continue aspirin, Lipitor, Plavix, metoprolol 50 mg twice daily. 3. Paroxysmal A. fib: Continue metoprolol. Coumadin was stopped on last hospitalization. 4. hypothyroidism: Continue levothyroxine. 5. COPD: Continue DuoNeb along with Pulmicort continue O2 as needed 7 hyperlipidemia: Continue Lipitor. 8 anemia of chronic disease: Has been on iron supplement. 9 valvular heart disease: Patient still on medical management currently. 10 chronic back pain with compression vertebrae, stable. 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 12 hypertension: Continue Lopressor 50 mg twice daily, amlodipine 2.5 mg daily and lisinopril 5 mg daily. 13 GI prophylaxis: Patient will be on pantoprazole 14 DVT prophylaxis . CODE STATUS: DO NOT RESUSCITATE by patient wishes. Discharge planning home with family members against AFC with OT and speech
[2016-10-05] MEDS: IPRATROPIUM-ALBUTEROL 3 ML NEB INHALATION PRN (20:59)
[2016-10-05] MEDS: SENNOSIDES 8.6 MG TAB PO SCH (21:28)
[2016-10-05] MEDS: ATORVASTATIN 80 MG TAB PO SCH (21:28)
[2016-10-05] MEDS: MONTELUKAST 10 MG TAB PO SCH (21:28)
[2016-10-06] MEDS: LEVOTHYROXINE 112 MCG TAB PO SCH (05:57)
[2016-10-06] MEDS: IPRATROPIUM-ALBUTEROL 3 ML NEB INHALATION PRN (08:09)
[2016-10-06] MEDS: BUDESONIDE 0.5 MG/2 ML NEBU INHALATION SCH ×2 (08:09→21:39)
[2016-10-06] MEDS: METOPROLOL TARTRATE 50 MG TAB PO SCH ×2 (09:38→21:28)
[2016-10-06] MEDS: FERROUS SULFATE 325 MG TAB PO SCH (09:38)
[2016-10-06] MEDS: CYANOCOBALAMIN-FA-PYRIDOXINE 1 EACH TAB PO SCH (09:38)
[2016-10-06] MEDS: LISINOPRIL 5 MG TAB PO SCH (09:39)
[2016-10-06] MEDS: amLODIPine 2.5 MG TAB PO SCH (09:39)
[2016-10-06] MEDS: FAMOTIDINE 20 MG TAB PO SCH (09:39)
[2016-10-06] MEDS: CLOPIDOGREL 75 MG TAB PO SCH (09:39)
[2016-10-06] MEDS: ASPIRIN 325 MG TAB PO SCH (09:39)
[2016-10-06] MEDS: GABAPENTIN 300 MG CAP PO SCH ×3 (09:39→22:20)
--- NOTE | 2016-10-06 14:51 | P.PN ---
Subjective 81-year-old female patient of Dr. Delarosa with past medical history of hypertension, hyperlipidemia, paroxysmal atrial fibrillation is known to have sick sinus syndrome aortic dissection under conservative management, non- ST myocardial infarction in July 2016 status post PCI and stent of RCA, chronic back pain. Patient hasn't drooping of the face and expressive aphasia. Patient came into [facility] emergency center by EMS for evaluation of right facial droop and aphasia. Patient apparently had some improvement with EMS with oxygen and IV fluids. Carotid duplex shows 40% stenosis in both internal carotid arteries. Chest x-ray shows cardio mainly with chronic parenchymal changes without acute pulmonary process. CAT scan of the brain showed no acute intracranial abnormality. Atrophic changes with chronic white matter ischemic change. Troponin was 0.022. Electrolytes, renal and liver function testing all within normal limits. Patient was started on full strength aspirin and admitted to the selective care unit with consult with Dr. Adams from neurology, MRI of the brain has been ordered. PT OT and speech therapy ordered. 10/04:MRI of the brain shows areas of evolving acute infarct involving posterior superior lateral aspect of the left temporal lobe with some parietal lobe extension. Background of [id number] diffuse cerebral atrophy and moderate to severe chronic small vessel ischemic change. Patient has been seen by neurology. EEG is scheduled for today. Case management has set the patient up for discharge home with VNA. Anticipate possible discharge by tomorrow. Patient did well with physical therapy and does not have any deficits in that way but continues to have word finding difficulties. OT and speech therapy are on.triglycerides 138, cholesterol 92, LDL 37, HDL 27. 10/05: Patient was seen today she has improving speech, no significant motor deficits. She has difficulty in word finding otherwise. Patient has been seen by speech and occupational therapy with recommendations for home rehabilitation. Patient did not qualify for inpatient rehabilitation. Family is at bedside and is contemplating on the plans. AFC against home with family. Anticipate discharge on Friday pending disposition for family members 10/06: Patient was without any complaints today however she did not recollect that she had a stroke coming in to this hospital for the current admission, she also did not recognize me. Memory losses or cognitive deficits are noted. Discussed this with the family members, I strongly recommend AFC placement as there is going to be future concerns for wandering problems at home when family members are temporarily out of her current home Objective - Vital Signs Vital signs: Vital Signs Temp 98.1 F 10/06/16 12:00 Pulse 52 L 10/06/16 12:00 Resp 52 H 10/06/16 12:00 BP 110/59 10/06/16 12:00 Pulse Ox 95 10/06/16 12:00 Intake & Output 10/05/16 10/06/16 10/06/16 18:59 06:59 18:59 Intake Total 400 Balance 400 Weight 63.9 kg Intake: Oral 400 Other: # Voids 1 - Constitutional General appearance: Present: average body habitus, no acute distress - EENT Eyes: Present: anicteric sclerae, EOMI, PERRLA, dentition normal, normal appearance ENT: Present: NA/AT, normal oropharynx - Neck Neck: Present: normal ROM. Absent: lymphadenopathy, other, rigidity, stridor, thyromegaly - Respiratory Respiratory: bilateral: CTA, negative: diminished, dullness, rales - Cardiovascular Rhythm: regular Heart sounds: normal: S1, S2 Abnormal Heart Sounds: Absent: systolic murmur, diastolic murmur, rub, S3 Gallop , S4 Gallop, click, other - Gastrointestinal General gastrointestinal: Present: normal bowel sounds, soft - Integumentary Integumentary: Present: normal, normal turgor - Neurologic Neurologic: Present: CNII-XII intact, focal deficits (Memory losses noted) - Musculoskeletal Musculoskeletal: Present: gait normal, strength equal bilaterally - Psychiatric Psychiatric: Present: A&O x's 3, appropriate affect - Labs CBC & Chem 7: 10/04/16 06:02 10/04/16 06:02 Assessment and Plan Plan: 1. 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 Consult with neurologyappreciated. MRI as above. Continue aspirin 325 mg daily, Lipitor. PT OT and speech therapy in progress. Plan for home speech therapy and occupational therapy for expressive aphasia. Short-term memory losses are noted 2. Recent non-ST elevated myocardial infarction July 2016 status post PCI and stent placement of the right coronary artery and dissection of the ascending aorta during angioplasty, stable. Continue aspirin, Lipitor, Plavix, metoprolol 50 mg twice daily. 3. Paroxysmal A. fib: Continue metoprolol. Coumadin was stopped on last hospitalization. 4. hypothyroidism: Continue levothyroxine. 5. COPD: Continue DuoNeb along with Pulmicort continue O2 as needed 7 hyperlipidemia: Continue Lipitor. 8 anemia of chronic disease: Has been on iron supplement. 9 valvular heart disease: Patient still on medical management currently. 10 chronic back pain with compression vertebrae, stable. 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 12 hypertension: Continue Lopressor 50 mg twice daily, amlodipine 2.5 mg daily and lisinopril 5 mg daily. 13. Cognitive impairment with memory losses short-term, patient might need repeat EEG. Patient is followed by neurology closely 13 GI prophylaxis: Patient will be on pantoprazole 14 DVT prophylaxis . CODE STATUS: DO NOT RESUSCITATE by patient wishes. Discharge planning AFC with OT and speech social work to assist with placement
[2016-10-06 16:13] VITALS: RESP 16
[2016-10-06] MEDS: SENNOSIDES 8.6 MG TAB PO SCH (21:27)
[2016-10-06] MEDS: ATORVASTATIN 80 MG TAB PO SCH (21:28)
[2016-10-06] MEDS: MONTELUKAST 10 MG TAB PO SCH (21:28)
[2016-10-07] MEDS: LEVOTHYROXINE 112 MCG TAB PO SCH (06:11)
[2016-10-07] MEDS: BUDESONIDE 0.5 MG/2 ML NEBU INHALATION SCH (07:37)
[2016-10-07] MEDS: IPRATROPIUM-ALBUTEROL 3 ML NEB INHALATION PRN (07:37)
[2016-10-07 08:35] VITALS: BP 121/66; PULSE 74; TEMP 98.4
[2016-10-07] MEDS: CLOPIDOGREL 75 MG TAB PO SCH (08:39)
[2016-10-07] MEDS: METOPROLOL TARTRATE 50 MG TAB PO SCH (08:40)
[2016-10-07] MEDS: FAMOTIDINE 20 MG TAB PO SCH (08:40)
[2016-10-07] MEDS: ASPIRIN 325 MG TAB PO SCH (08:40)
[2016-10-07] MEDS: LISINOPRIL 5 MG TAB PO SCH (08:40)
[2016-10-07] MEDS: GABAPENTIN 300 MG CAP PO SCH (08:40)
[2016-10-07] MEDS: amLODIPine 2.5 MG TAB PO SCH (08:41)
[2016-10-07] MEDS: FERROUS SULFATE 325 MG TAB PO SCH (08:41)
[2016-10-07] MEDS: CYANOCOBALAMIN-FA-PYRIDOXINE 1 EACH TAB PO SCH (13:13)
--- NOTE | 2016-10-08 05:22 | EEG ---
DATE OF SERVICE: 10/04/2016 REASON FOR TESTING: Stroke. AGE: 81Y DESCRIPTION OF THE PROCEDURE: This EEG was performed using a 21-channel digital electroencephalograph, following the international 10 to 20 system. DESCRIPTION OF THE RECORDING: From the beginning of the tracing, and with the patient's eyes closed, the background rhythm was mostly consisting of 8 Hz alpha frequency in the posterior occipital leads. No obvious asymmetry is seen. Photic stimulation was performed with a minimal driving response seen. No pathological waves were elicited. Occasional movement artifacts and frequent muscle artifacts are seen. Hyperventilation was not performed. The patient remains awake throughout the tracing. No epileptiform discharges were seen. Her EKG lead showed a regular rate and rhythm. INTERPRETATION: This awake EEG can be considered within normal limits. There was no asymmetry seen. No epileptiform discharges were noticed. The absence of epileptiform discharges does not rule out the diagnosis of epilepsy, therefore clinical correlation is recommended.
--- NOTE | 2016-10-08 14:45 | P.DS ---
Providers Date of admission: 10/02/16 16:51 Expected date of discharge: 10/07/16 Attending physician: Vivien Duckworth Consults: 10/02/16 18:12 Consult Physician Stat Consulting Provider: Noni Adams Consult Reason/Comments: tia/cva Do you want consulting provider notified?: Yes [facility]: 81-year-old female patient of Dr. Delarosa with past medical history of hypertension, hyperlipidemia, paroxysmal atrial fibrillation is known to have sick sinus syndrome aortic dissection under conservative management, non- ST myocardial infarction in July 2016 status post PCI and stent of RCA, chronic back pain. Patient hasn't drooping of the face and expressive aphasia. Patient came into [facility] emergency center by EMS for evaluation of right facial droop and aphasia. Patient apparently had some improvement with EMS with oxygen and IV fluids. Carotid duplex shows 40% stenosis in both internal carotid arteries. Chest x-ray shows cardio mainly with chronic parenchymal changes without acute pulmonary process. CAT scan of the brain showed no acute intracranial abnormality. Atrophic changes with chronic white matter ischemic change. Troponin was 0.022. Electrolytes, renal and liver function testing all within normal limits. Patient was started on full strength aspirin and admitted to the selective care unit with consult with Dr. Adams from neurology, MRI of the brain has been ordered. PT OT and speech therapy ordered. 10/04:MRI of the brain shows areas of evolving acute infarct involving posterior superior lateral aspect of the left temporal lobe with some parietal lobe extension. Background of [id number] diffuse cerebral atrophy and moderate to severe chronic small vessel ischemic change. Patient has been seen by neurology. EEG is scheduled for today. Case management has set the patient up for discharge home with VNA. Anticipate possible discharge by tomorrow. Patient did well with physical therapy and does not have any deficits in that way but continues to have word finding difficulties. OT and speech therapy are on.triglycerides 138, cholesterol 92, LDL 37, HDL 27. 10/05: Patient was seen today she has improving speech, no significant motor deficits. She has difficulty in word finding otherwise. Patient has been seen by speech and occupational therapy with recommendations for home rehabilitation. Patient did not qualify for inpatient rehabilitation. Family is at bedside and is contemplating on the plans. AFC against home with family. Anticipate discharge on Friday pending disposition for family members 10/06: Patient was without any complaints today however she did not recollect that she had a stroke coming in to this hospital for the current admission, she also did not recognize me. Memory losses or cognitive deficits are noted. Discussed this with the family members, I strongly recommend AFC placement as there is going to be future concerns for wandering problems at home when family members are temporarily out of her current home 10/07: Patient and family are in agreement that she will be discharged home today. Patient will be discharged home in stable condition. Case management has arranged for home care. Discharge diagnoses: 1. 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 2. Recent non-ST elevated myocardial infarction July 2016 status post PCI and stent placement of the right coronary artery and dissection of the ascending aorta during angioplasty, stable. 3. Paroxysmal A. fib: 4. hypothyroidism: 5. COPD: 7 hyperlipidemia: 8 anemia of chronic disease: 9 valvular heart disease: 10 chronic back pain with compression vertebrae, stable. 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 Cognitive impairment with memory losses short-term, Discharge planning AFC with OT and speech social work to assist with placement Impression and plan of care have been directed as dictated by the signing physician. Keiko Lazcano nurse practitioner acting as scribe for signing physician. Cc: Dr. Nathaly Delarosa Patient Condition at Discharge: Good Plan - Discharge Summary New Discharge Prescriptions: Sxvshfqjhgzvij-KG-Bldwfmftky [Folbic] 1 each PO DAILY@1200 #30 tab Metoprolol Tartrate [Lopressor] 50 mg PO BID #60 tab Discharge Medication List Budesonide [Pulmicort] 0.5 mg INHALATION RT-BID 07/23/16 [History] Famotidine [Pepcid] 20 mg PO DAILY 07/23/16 [History] Gabapentin [Neurontin] 300 mg PO TID 07/23/16 [History] Levothyroxine Sodium [Synthroid] 112 mcg PO DAILY 07/23/16 [History] Lisinopril [Zestril] 5 mg PO DAILY 07/23/16 [History] Montelukast [Singulair] 10 mg PO HS 07/23/16 [History] Sennosides [Senna] 8.6 mg PO HS 07/23/16 [History] ALPRAZolam [Xanax] 0.25 mg PO BID PRN 10/02/16 [History] Acetaminophen [Tylenol] 500 mg PO Q4-6H PRN 10/02/16 [History] Atorvastatin [Lipitor] 80 mg PO HS 10/02/16 [History] Clopidogrel [Plavix] 75 mg PO DAILY 10/02/16 [History] Ferrous Sulfate [Iron (65 MG Elemental)] 325 mg PO DAILY 10/02/16 [History] Ipratropium-Albuterol Nebulize [Duoneb 0.5 mg-3 mg/3 ml Soln] 3 ml INHALATION QID PRN 10/02/16 [History] Lutein 20 mg PO DAILY 10/02/16 [History] Nitroglycerin Sl Tabs [Nitrostat] 0.4 mg PO Q5M PRN 10/02/16 [History] amLODIPine [Norvasc] 2.5 mg PO DAILY 10/02/16 [History] Aspirin 325 mg PO DAILY tab 10/07/16 [Rx] Uvugjlvjfvodqh-DD-Qgxpsfkvyh [Folbic] 1 each PO DAILY@1200 #30 tab 10/07/16 [Rx] Metoprolol Tartrate [Lopressor] 50 mg PO BID #60 tab 10/07/16 [Rx] Follow up Appointment(s)/Referral(s): Nathaly Delarosa MD [Primary Care Provider] - 10/14/16 8:30 am Noni Adams MD [STAFF PHYSICIAN] - 2 Weeks (office will call you with appt.) [facility] Visiting Nurse, [NON-STAFF] - Patient Instructions/Handouts: Metoprolol (By mouth), Folic Acid/ Cyanocobalamin (By mouth), Anemia (DC), Stroke (DC) Activity/Diet/Wound Care/Special Instructions: Wanderguard Discharge Disposition: HOME WITH HOME HEALTH SERVICES
== END 2016-10-07 17:20 | disposition home health service (06) | DRG 64 ==
LOC: EC 14:44 → 6SEL 16:51 → 5MS5E 10-06 11:33
PROVIDERS: ADMIT Internal Medicine; ATTEND Internal Medicine
DX: I63.9 Cerebral infarction, unspecified (principal); I71.00 Dissection of unspecified site of aorta; I49.5 Sick sinus syndrome; I48.0 Paroxysmal atrial fibrillation; G62.9 Polyneuropathy, unspecified; R47.01 Aphasia; I10 Essential (primary) hypertension; J44.9 Chronic obstructive pulmonary disease, unspecified; I08.0 Rheumatic disorders of both mitral and aortic valves; E03.9 Hypothyroidism, unspecified; Z66 Do not resuscitate; E78.5 Hyperlipidemia, unspecified; F41.9 Anxiety disorder, unspecified; I25.2 Old myocardial infarction; K21.9 Gastro-esophageal reflux disease without esophagitis; R29.810 Facial weakness; R29.703 NIHSS score 3; I73.9 Peripheral vascular disease, unspecified; M19.90 Unspecified osteoarthritis, unspecified site; M81.0 Age-related osteoporosis without current pathological fracture; K44.9 Diaphragmatic hernia without obstruction or gangrene; Z90.49 Acquired absence of other specified parts of digestive tract; G89.29 Other chronic pain; M54.9 Dorsalgia, unspecified; I25.10 Atherosclerotic heart disease of native coronary artery without angina pectoris; D63.8 Anemia in other chronic diseases classified elsewhere; J45.909 Unspecified asthma, uncomplicated; K57.90 Diverticulosis of intestine, part unspecified, without perforation or abscess without bleeding; N81.4 Uterovaginal prolapse, unspecified; R41.89 Other symptoms and signs involving cognitive functions and awareness; R47.1 Dysarthria and anarthria; Z87.891 Personal history of nicotine dependence; Z95.5 Presence of coronary angioplasty implant and graft; Z96.641 Presence of right artificial hip joint; Z98.42 Cataract extraction status, left eye; Z98.41 Cataract extraction status, right eye; Z96.1 Presence of intraocular lens; Z79.02 Long term (current) use of antithrombotics/antiplatelets; Z79.82 Long term (current) use of aspirin; Z79.51 Long term (current) use of inhaled steroids; Z79.899 Other long term (current) drug therapy
CPT/HCPCS: 36415; 70450; 70551; 71020; 80048; 80053; 80061; 82550; 82553; 83090; 84484; 85025; 85027; 85610; 85730; 93005; 93880; 94640; 94760; 95819; 99291